=== PATIENT | female | born 1970 | race Caucasian/White ===

== ENCOUNTER 2018-02-19 14:14 | Emergency (ER) | payer OTHER ==
[2018-02-19 15:55] LABS: URINE PH (Dip) POC 5.5 (5.0-8.5)
[2018-02-19 15:55] LABS: URINE BLOOD (Dip) POC 2+ (NEGATIVE); URINE GLUCOSE (Dip) POC Negative (NEGATIVE); URINE KETONES (Dip) POC Negative (NEGATIVE); URINE LEUKOCYTE EST (Dip) POC Negative (NEGATIVE); URINE NITRITE (Dip) POC Positive (NEGATIVE); URINE TOTAL PROTEIN POC Negative (NEGATIVE)
== END 2018-02-19 17:47 | disposition home or self-care (01) ==
LOC: FTE 14:14
DX: S59.902A Unspecified injury of left elbow, initial encounter (principal); S89.91XA Unspecified injury of right lower leg, initial encounter; S39.92XA Unspecified injury of lower back, initial encounter; W17.89XA Other fall from one level to another, initial encounter; Y92.9 Unspecified place or not applicable
CPT/HCPCS: 73060; 73080-LT; 73550; 73562; 81003; 99284-25